=== PATIENT | female | born 1990 ===

== ENCOUNTER 2018-10-09 16:19 | Emergency (ER) | payer SELFPAY ==
[2018-10-09 23:25] VITALS: BP 115/68; PULSE 85; RESP 16; TEMP 98.1; O2SAT 99
--- NOTE | 2018-10-10 10:21 | OBHP ---
Datetime: 10/09/2018 16:53 IP Adm Impression: Term, intrauterine IP Admit Plan: Observation/Evaluation; Discharge home Admit Comment, IP Provider: PNP: care established in [place] -Records are in [place]-Last visit: 1 wk ago; last us: 1 month ago 28 y/o @ 37.5wks JT 10/25/2018, LMP 01/18/2019 here complaining of lower abdominal pain 2 hours ago, 10/27 w/o any n/v/diarrhea. +FM, denies los, vb, f/c/headache,cp, sob, lightheadedness or dysuria . OBGYNhx: UTI @ 33wks ( completed antibiotic course) PMH: denies Meds: PNV Allergies: denies Surghx: denies Sochx: denies ROS: 12 points reviewed and are neg unless otherwise mentioned in HPI PE: Gen: female breathing comfortably Cardio: s1s2 RRR Lungs: cta b/l, no wheeze Abd: gravid, soft, nontender, no rigidity, no guarding Pelvic: closed, thick, high Ext: nonedematous A/P:28 y/o @ 37.5wks, clinically stable, c/o of lower abdominal pain. -Cervix closed -Discharge home with labor precautions -# given to make appt at [facility] clinic Case discussed with Dr. Shipman -Sherri Liu, PGY-1 Extremities - PN: Normal Abdomen - PN: Normal Lungs - PN: Normal Heart - PN: Normal General - PN: Normal Gestation - Est Wks by US: 37.5 IP Hx Assessment: The History has been Updated EGA AdmitDate IP: 37.5 Vital Signs Provider: Reviewed; Within Normal Limits IP Chief Complaint: Maternal discomfort NICHD Variability Prov Fetus A: Moderate 6-25bpm NICHD Accel Fetus A IP Provider: 15X15 NICHD Decel Fetus A IP Provider: None Dilatation, Provider: 0 Effacement, Provider: thick Station, Provider: -3
== END 2018-10-09 18:35 | disposition home or self-care (01) ==
LOC: H.EROB2 16:19
DX: O26.93 Pregnancy related conditions, unspecified, third trimester (principal); R10.2 Pelvic and perineal pain; Z3A.37 37 weeks gestation of pregnancy

== ENCOUNTER 2018-10-31 02:44 | Inpatient (IN) | payer MEDICAID ==
[2018-10-31 03:33] VITALS: BMI 28.3
[2018-10-31] MEDS ORDERED: Lactated Ringer's 1,000 ML IV ONE (03:36)
[2018-10-31] MEDS ORDERED: Penicillin G Potassium 5 MU in Sodium Chloride 0.9% 50 ML IVPB ONE (03:36)
[2018-10-31 04:48] LABS: BASO % 0.2 % (0.0-2.0); EOS % 0.4 % (0.0-4.0); HEMOGLOBIN 12.4 g/dL (12.0-16.0); LYMPH # 2.5 K/uL (1.0-4.3); LYMPH % 25.4 % (20.0-40.0); MEAN CORPUSCULAR HEMOGLOBIN 29.6 pg (27.0-31.0); MEAN PLATELET VOLUME 9.3 fl (7.2-11.7); MONO # 0.7 K/uL (0.0-0.8); MONO % 7.5 % (0.0-10.0); NEUT # 6.6 K/uL (1.8-7.0); NEUT % 66.5 % (50.0-75.0); NRBC % 0.1 % (0.0-0.0); RBC 4.18 Mil/uL (3.80-5.20); RED CELL DISTRIBUTION WIDTH 13.2 % (11.5-14.5)
[2018-10-31] MEDS: Lactated Ringer's 1,000 ML IV SCH ×2 (05:00→15:28)
--- NOTE | 2018-10-31 09:22 | OBADHP ---
Datetime: 10/31/2018 07:45 Presentation-Admit: Vertex IP Fetus A Comments: sono ceph - confirmed by sono FHR - Baseline A Provider: 120 Contraction Comments Provider: occ Pool Provider: Positive NICHD Variability Prov Fetus A: Moderate 6-25bpm NICHD Accel Fetus A IP Provider: 15X15 FHR Category Provider Fetus A: Category I NICHD Decel Fetus A IP Provider: None Datetime: 10/31/2018 03:30 Admit Comment, IP Provider: 28yo IUP at 406s (EDC Oct 25) c/o CTX and SROM at 1:30am. No VB +F M PNC: Dom Rep; came to [facility] and had PNC at [facility] starting 37w GBS+; last sono ceph at 37w 3kg PMH: denies PSH: Sahil POBGYNH: Denies STD; G1 PSoH: deneis smoking ETOH Drugs A; IUP at 40+w SROM/GBS+ not in labor PLAN: admit to L_D -IV access/labs -pain managment, medications for IOL and /or augmentation; labor,delivery and care disc ussed - will start PCN 5m units IV the 2.5m q 4h Pelvic Type - PN: Adequate Extremities - PN: Normal Abdomen - PN: Normal Back - PN: Normal Breast - PN: Not Done Lungs - PN: Normal Heart - PN: Normal Thyroid - PN: Normal Neurologic - PN: Normal HEENT - PN: Normal General - PN: Normal Membranes, Provider: Ruptured IP Hx Assessment: The History has been Reviewed and is Current IP Chief Complaint: Uterine contractions; Suspected ruptured membranes Dilatation, Provider: 0 Effacement, Provider: 0 Genitourinary Exam: Normal DTRs - PN: Normal EGA AdmitDate IP: 40.6 IP Adm Impression: Term, intrauterine ; No Active Labor; Ruptured Membranes IP Admit Plan: Admit to unit; Initiate labor induction protocol Datetime: 10/09/2018 16:53 Gestation - Est Wks by US: 37.5 Vital Signs Provider: Reviewed; Within Normal Limits Station, Provider: -3
--- NOTE | 2018-10-31 09:40 | OBPN ---
Datetime: 10/31/2018 07:45 IP Progress Impression: Reassuring heart rate IP Progress Plan: Induction Pool Provider: Positive Contraction Comments Provider: occ FHR - Baseline A Provider: 120 IP Fetus A Comments: sono ceph - confirmed by sono Presentation-Admit: Vertex IP Progress Note Comment: SHe feels occ CTX A: 40+w SROM Unfavorable cervix PLAN: disucssion with pt to start inducton with ctytoec. She understood and her questions answered . Rekha was present for translation. ...will start Cytotec po NICHD Accel Fetus A IP Provider: 15X15 FHR Category Provider Fetus A: Category I NICHD Variability Prov Fetus A: Moderate 6-25bpm NICHD Decel Fetus A IP Provider: None Datetime: 10/31/2018 03:30 Membranes, Provider: Ruptured Dilatation, Provider: 0 Effacement, Provider: 0 Datetime: 10/09/2018 16:53 Gestation - Est Wks by US: 37.5 Vital Signs Provider: Reviewed; Within Normal Limits Station, Provider: -3
[2018-10-31] MEDS ORDERED: Nalbuphine HCL 10 mg/ml Ampule IVP ONE (15:13)
[2018-10-31] MEDS ORDERED: Oxytocin 30 UNIT in NS 500 ml 30 UNITS/500 ML BAG IV ONE ×2 (17:13→17:17)
[2018-10-31] MEDS ORDERED: OXYTOCIN/0.9 % NS 20 UNIT/1,000 ML BAG IV ONE (17:17)
[2018-10-31] MEDS ORDERED: Penicillin G 5 Million Unit Vial IVPB ONE (21:08)
[2018-10-31] MEDS ORDERED: Fentanyl/Bupivacaine HCl 250 ML EPI ONE (22:01)
[2018-10-31] MEDS ORDERED: Bupivacaine HCl 0.25% PF (10 ml) Inj ONE (22:01)
[2018-11-01] MEDS: Lactated Ringer's 1,000 ML IV SCH ×2 (08:30→12:52)
[2018-11-01] MEDS ORDERED: Oxytocin 30 UNIT in NS 500 ml 30 UNITS/500 ML BAG IV ONE ×3 (10:06→10:15)
[2018-11-01] MEDS ORDERED: OXYTOCIN/0.9 % NS 20 UNIT/1,000 ML BAG IV SCH ×3 (10:15→17:33)
--- NOTE | 2018-11-01 10:15 | OBPN ---
Datetime: 11/01/2018 10:03 IP Progress Impression: Normal progression of labor IP Informed Consent Obtain: Vaginal Delivery IP Procedures: Sterile Vag Exam IP Progress Plan: Continue present management Membranes, Provider: Ruptured Contraction Comments Provider: q 5-6 mins FHR - Baseline A Provider: 140 IP Progress Note Comment: Patient is 4cm dilated/80/-1. Patient is comfortable with epidural. FHR ea rlier was 140 mod lopez, late decelerations that were not recurrent and resolved. Pitocin was stopped a nd patient was given time for recovery. Will restart Pitocin for augmentation as long as reassuring F HR, CEFM and TOCO. Re-evaluate as needed Vital Signs Provider: Reviewed; Within Normal Limits NICHD Accel Fetus A IP Provider: 15X15 FHR Category Provider Fetus A: Category I NICHD Variability Prov Fetus A: Moderate 6-25bpm Dilatation, Provider: 4 Effacement, Provider: 70 Station, Provider: -1 Datetime: 10/31/2018 23:43 NICHD Decel Fetus A IP Provider: None
[2018-11-01] MEDS ORDERED: ceFAZolin 2 GM in Sodium Chloride 0.9% 100 ML IVPB ONE (11:04)
--- NOTE | 2018-11-01 11:23 | OBPN ---
Datetime: 11/01/2018 11:18 IP Progress Impression: Non-reassuring heart rate IP Informed Consent Obtain: Section Delivery FHR - Baseline A Provider: 140 IP Progress Note Comment: Patient having recurrent late decelerations - discussed with patient that unable to augment patient because of recurrent late decelerations. Patient has a Cat 2 tracing and re mote for delivery. discussed with patient that recommendation is for delivery via . Risks/be nefits discussed with patient, consent signed. ANcef to be given pre-operatively - all questions answ ered. Patient to proceed to OR when available Vital Signs Provider: Reviewed; Within Normal Limits NICHD Accel Fetus A IP Provider: 15X15 NICHD Variability Prov Fetus A: Moderate 6-25bpm Dilatation, Provider: 4 Effacement, Provider: 80 Station, Provider: -1 NICHD Decel Fetus A IP Provider: Late
[2018-11-01] MEDS ORDERED: Propofol 10 mg/ml Inj (20 ML) ONE (12:41)
[2018-11-01] MEDS ORDERED: Oxycodone/Acetaminophen 5/325 mg Tab PO PRN ×3 (13:04→17:33)
--- NOTE | 2018-11-01 13:15 | OBDS ---
DELIVERY PERSONNEL Delivery Doctor: Ranulfo Davila MD Scrub Nurse: Tricia Asencio Drum Sander Setter: Keiko Ruffin RN Anesthesiologist: MD meena Resident: Mariella Salcedo MD (Fellow) MATERNAL INFORMATION Delivery Anesthesia: Epidural Medications in Delivery: pitocin Estimated Blood Loss (ml): 800 Placenta Cultured: No Maternal Complications: None RN Comments: Atraumatic delivery of viable babyboy with lusty cry Dr. Jimenez present 9/ 9 APGARs assigned. Patient tolerated delivery well. Provider Comments: Surgeon: Dr. Davila Senior Internal Auditor: Dr. Barbara Beasley Pre-op: Cat 2 tracing remote from delivery Surgery: LTCS Post-op: same Finding: live male infant, 7/bs 2 oz, 9/9, cephalic, clear fluid, grossly nml tubes ovaries, place nta EBL : 800mL Total input: 1400ml UO:400 ml Complications: none Pathology: cord blood Condition: stabe LABOR SUMMARY EDC: 10/25/2018 00:00 No. Babies in Womb: 1 Attempted: No Labor Anesthesia: Epidural LABOR INFORMATION Reason for Induction: Not Applicable Cervical Ripening Agents: Cytotec @ 50 mcg po as per md order Oxytocin: Induction Group B Beta Strep: Positive Antibiotics # of Doses: 6 Antibiotics Time of Last Dose: 1150 Steroids Given: None Reason Steroids Not Administered: Not Applicable MEMBRANES Membranes Rupture Method: Spontaneous Rupture of Membranes: 10/31/2018 02:30 Length of Rupture (hrs): 33.90 Amniotic Fluid Color: Clear Amniotic Fluid Amount: Moderate Amniotic Fluid Odor: Normal STAGES OF LABOR Stage 3 hrs: 0 Stage 3 min: 1 CSECTION DELIVERY CSection Urgency: Emergency CSection Incidence: Primary Labor: Labor BABY A INFORMATION Infant Delivery Date/Time: 11/01/2018 12:24 Method of Delivery: Born in Route : No : N/A Forceps: N/A Vacuum Extraction: N/A Shoulder Dystocia : No SHOULDER DYSTOCIA BABY A Infant Delivery Date/Time: 11/01/2018 12:24 PRESENTATION/POSITION BABY A Presentation: Cephalic Cephalic Presentation: Vertex Vertex Position: Left Occipital Anterior Breech Presentation: N/A PLACENTA INFORMATION BABY A Placenta Delivery Time : 11/01/2018 12:25 Placenta Method of Delivery: Manual Removal Placenta Status: Delivered SCORES BABY A Heart Rate 1 min: >100 bpm Resp Effort 1 min: Good Cry Reflex Irritability 1 min: Cough or Sneeze or Pulls Away Muscle Tone 1 min: Active Motion Color 1 min: Body [place], Extremities Blue Resuscitation Effort 1 min: N/A SCORE 1 MIN: 9 Heart Rate 5 min: >100 bpm Resp Effort 5 min: Good Cry Reflex Irritability 5 min: Cough or Sneeze or Pulls Away Muscle Tone 5 min: Active Motion Color 5 min: Body [place], Extremities Blue Resuscitation Effort 5 min: N/A SCORE 5 MIN: 9 INFANT INFORMATION BABY A Gestational Age at Delivery: 41.0 Gestational Status: term Infant Outcome : Liveborn Condition : Stable Infant Sex: Male IDENTIFICATION/MEDS BABY A ID Band Number: [id number] ID Band Location: Left Leg; Left Arm WEIGHT/LENGTH BABY A Birthweight (gms): 3230 Infant Weight (lb): 7 Infant Weight (oz): 2 CORD INFORMATION BABY A No. Cord Vessels: 3 Nuchal Cord : N/A Cord Blood Taken: No Infant Suction: Mouth ASSESSMENT BABY A Complications: None Physical Findings at Delivery: Within Normal Limits Respirations: Appears Normal Assembly Line Machine Operator/ALS Called : No Transferred To: Remains with Mother
[2018-11-01] MEDS ORDERED: Simethicone 80 mg Chewtab PO SCH (16:00)
[2018-11-01] MEDS: Simethicone 80 mg Chewtab PO SCH (21:42)
[2018-11-01] MEDS ORDERED: Lactated Ringer's 1,000 ML IV ONE (22:55)
--- NOTE | 2018-11-02 00:35 | OP ---
PROCEDURE DATE: 11/01/2018 SURGEON: Maribell Davila MD GAME AUTHOR: Dr. Jillian Beasley PREOPERATIVE DIAGNOSIS: Category 2 tracing, remote from delivery. POSTOPERATIVE DIAGNOSIS: Category 2 tracing, remote from delivery. SURGERY: Low transverse section. FINDINGS: Live male , cephalic presentation, 7 pounds and 2 ounces, 9 and 9 Apgars. Clear fluid. Grossly normal tubes, ovaries, placenta, and uterus. ESTIMATED BLOOD LOSS: 800 mL. URINE OUTPUT: 400 mL. TOTAL FLUID INPUT: 1400 mL. COMPLICATIONS: None. CONDITION: Stable. PATHOLOGY SPECIMEN: Cord blood. INDICATIONS: This is a 28-year-old G1, P0 at 41 weeks for induction. The patient progressed to 4 cm, in early labor with repetitive late when augmentation was used. Despite something to resuscitate, augmentation was not able to be continued, and therefore the patient was not able to progress active labor. The patient was advised to proceed with . Risks and benefits of the surgery were explained to the patient, and the patient signed a informed consent. DESCRIPTION OF PROCEDURE: The patient was taken to OR. Ancef was given preoperatively. SCDs were placed bilaterally. The patient was prepped and draped in a normal sterile fashion in dorsal supine position with a leftward tilt. A Pfannenstiel skin incision was made with the scalpel and carried through to the underlying layer of fascia with the Bovie. Fascia was incised in the midline. The incision was extended laterally with the Pandey scissors. Kevin clamps were used to tent up the inferior aspect of this incision which we dissected off the underlying pyramidalis muscles with the Pandey scissors. In a similar fashion, we tented up the superior aspect of this incision which we dissected off of the underlying rectus abdominis muscles with the Pandey scissors. The muscles were bluntly at the midline. The incision was extended superiorly and inferiorly with good visualization of all underlying organs. A bladder blade was inserted. The vesicouterine peritoneum was identified grasped with pickups, and the bladder flap was created with the Metzenbaum scissors. The lower uterine segment was incised in a transverse fashion, and uterine cavity was entered. The incision was extended laterally with bandage scissors. Clear fluid was noted. was delivered in cephalic presentation atraumatically followed by shoulders and the rest of the infant atraumatically. Cord was clamped and cut. Cord blood was obtained. Placenta was extracted manually. The uterus was exteriorized, cleared of all clots. The uterine incision was repaired with 0 Vicryl stitch. Second imbricating layer was done with an 0 Monocryl stitch. Small bleeders were re-inspected. There was hematoma in the bladder flap that was not extending and again re-inspected. The uterus was returned to the abdomen. Gutters were cleared of all clots. Hysterotomy site again was inspected and found to be hemostatic. The peritoneum was closed with a 2-0 Monocryl, and the muscles were reapproximated with an 0 Vicryl. All bleeders on the muscles were cauterized. The fascia was closed with 0 Vicryl stitch. Subcutaneous fat was reapproximated with plain gut suture. Skin was closed with a 4-0 Monocryl. Sponge, lap, and needle counts were correct x4. The patient was taken to the recovery room in stable condition. There were no other complications. Maribell Davila MD
[2018-11-02] MEDS: Simethicone 80 mg Chewtab PO SCH ×4 (04:10→22:16)
[2018-11-02 06:10] LABS: HEMOGLOBIN 10.8 g/dL (12.0-16.0); MEAN CELL VOLUME 86.8 fl (81.0-99.0); MEAN CORPUSCULAR HEMOGLOBIN 30.1 pg (27.0-31.0); MEAN CORPUSCULAR HGB CONC 34.7 g/dL (33.0-37.0); RBC 3.58 Mil/uL (3.80-5.20); RED CELL DISTRIBUTION WIDTH 13.2 % (11.5-14.5); WHITE BLOOD COUNT 11.7 K/uL (4.8-10.8)
--- NOTE | 2018-11-02 08:00 | OBPPN ---
Datetime: 11/02/2018 04:42 PP Pain Prov: Within normal limits PP Nausea Prov: Denies PP Flatus Prov: Yes PP BM Prov: No PP Breasts Prov: Not Done PP Heart Prov: Normal PP Lungs Prov: Normal PP Abdomen/Uterus Prov: Normal PP Lochia Prov: Normal PP Vulva/Perineum Prov: Normal PP CVA Tenderness Prov: Normal PP Extremities Prov: Normal PP C/S Incision Prov: Not Applicable PP Progress Prov: Normal PP Comments Phys Exam Prov: See note PP Impression Prov: Normal progression PP Plan Prov: Continue present management PP Progress Note Prov: S: 28 yo Female S/P C-sec day 1 after 41wk of . Patient seen an d examined at bedside. Pain controlled with medication. Have not eaten or ambulate. Lochia unable to quantify. Patient is passing flatus, -BM. Patient denies CHIN, blurry vision, CP, palpitations, SOB, ch ills dysuria or other complaint at this time. Patient still have philip attached. Undecided about circ umscision. O: VS WNL GEN: NAD HEENT: NAD RESP: CTA b/l CV: RRR, S1 S2 normal, no murmurs ABD: BS+, Soft, uterus firm at umbilical level. Surgical scar covered with gauze, appropriate tend erness to touch. EXT: LE no edema, Jayjay's neg Philip attached 100ml none bloody H/H 11.6/35.3 A/P 3: 28 yo Female S/P C-sec day 1 after 41wk of . Patient is afebrile, hemodynamically stable and with normal PP progression. Plan -Remove dressing - DC Philip - Ambulation encouraged -Regular diet - encouraged -PNV 1 tab QD -Pain management -Ibuprofen 600mg q6h -Percocet 5/325mg q4h -Continue present management -F/U with Circumcision -DC planning on 11/04/18 Mickey PGY1 Case discussed with [facility]. Pt seen on rounds agree with note MAHNDO Vital Signs Provider PP: Reviewed; Within Normal Limits
[2018-11-02] MEDS ORDERED: Multivitamin With Minerals Tab PO SCH (09:00)
[2018-11-02] MEDS: Multivitamin With Minerals Tab PO SCH (09:21)
[2018-11-02] MEDS: Oxycodone/Acetaminophen 5/325 mg Tab PO PRN ×2 (09:23→18:06)
[2018-11-03] MEDS: Simethicone 80 mg Chewtab PO SCH ×4 (03:25→22:15)
[2018-11-03] MEDS: Multivitamin With Minerals Tab PO SCH (08:03)
--- NOTE | 2018-11-03 09:23 | OBPPN ---
Datetime: 11/03/2018 05:33 PP Pain Prov: Within normal limits PP Nausea Prov: Denies PP Flatus Prov: Yes PP BM Prov: No PP Breasts Prov: Not Done PP Heart Prov: Normal PP Lungs Prov: Normal PP Abdomen/Uterus Prov: Normal PP Lochia Prov: Normal PP Vulva/Perineum Prov: Normal PP CVA Tenderness Prov: Normal PP Extremities Prov: Normal PP C/S Incision Prov: Normal PP Progress Prov: Normal PP Comments Phys Exam Prov: See note PP Impression Prov: Normal progression PP Plan Prov: Continue present management PP Progress Note Prov: 28 yo Female S/P C-sec day 2. Patient is seen at bedside today. Pain co ntrolled with medication. Patient started feed today and tolerating food, she is able to ambulate, lo sue equal te menses. Patient report Dubois removed, and she is able to pass urin. Patient is passing flatus and BM. Patient denies CHIN, blurry vision, CP, palpitations, SOB, chills dysuria or other compl aint at this time. O: VS WNL GEN: NAD HEENT: NAD RESP: CTA b/l CV: RRR, S1 S2 normal, no murmurs ABD: BS+, Soft, uterus firm at umbilical level. Gauze removed, incision is clean intact with sterr y strip, no erythema, appropiate tenderness to palpate. EXT: LE no edema, Jayjay's neg Dubois attached 100ml none bloody H/H 11.6/35.3 A/P 28 yo Female S/P C-sec day 2 after 41wk of . Patient is afebrile, hemodynamically s table and with normal PP progression. Plan - Ambulation encouraged -Regular diet - encouraged -PNV 1 tab QD -Pain management -Ibuprofen 600mg q6h -Percocet 5/325mg q4h -Continue present management -DC planning on 11/04/18 Mickey PGY1 Case discussed with Attending The patient was seen with the resident I agree with the note Vital Signs Provider PP: Reviewed; Within Normal Limits
[2018-11-04] MEDS: Simethicone 80 mg Chewtab PO SCH ×2 (04:00→09:23)
[2018-11-04] MEDS: Multivitamin With Minerals Tab PO SCH (09:23)
[2018-11-04 17:58] VITALS: BP 114/65; PULSE 65; RESP 19; TEMP 98.4; O2SAT 100
== END 2018-11-04 13:11 | disposition home or self-care (01) | DRG 540 ==
LOC: H.EROB2 02:44 → H.L&D 03:36 → H.OB/GYN 11-01 17:00
PROVIDERS: ADMIT Obstetrics & Gynecology; ATTEND Obstetrics & Gynecology
PROC: 4A1HXCZ Monitoring of Products of Conception, Cardiac Rate, External Approach (ICD-10-PCS; 2018-10-31)
PROC: 10D00Z1 Extraction of Products of Conception, Low, Open Approach (ICD-10-PCS; principal; 2018-11-01)
DX: O76 Abnormality in fetal heart rate and rhythm complicating labor and delivery (principal); O48.0 Post-term pregnancy; Z37.0 Single live birth; Z3A.41 41 weeks gestation of pregnancy